=== PATIENT | female | born 1945 | race Caucasian/White ===

== ENCOUNTER 2017-09-14 09:58 | Emergency (ER) | payer MEDICARE ==
[2017-09-14 10:41] LABS: BASOPHILS % (AUTO) 0.5 %; EOSINOPHILS # (AUTO) 0.5 10^3/uL (0.0-0.7); EOSINOPHILS % (AUTO) 9.6 %; LYMPHOCYTES # (AUTO) 1.8 10^3/uL (1.5-3.5); LYMPHOCYTES % (AUTO) 34.9 %; MEAN CORPUSCULAR HEMOGLOBIN 30.9 pg (27.0-31.0); MEAN CORPUSCULAR VOLUME 90.9 fL (81.0-99.0); MONOCYTES # (AUTO) 0.4 10^3/uL (0.0-1.0); MONOCYTES % (AUTO) 7.5 %; NEUTROPHILS # (AUTO) 2.4 10^3/uL (1.5-6.6); NEUTROPHILS % (AUTO) 47.5 %; PLT - PLATELET COUNT 285 10^3/uL (130-450); RED BLOOD COUNT 4.19 10^6/uL (4.20-5.40); RED CELL DISTRIBUTION WIDTH 13.4 % (12.0-15.0); WHITE BLOOD COUNT 5.1 x10^3/uL (4.8-10.8)
[2017-09-14 10:54] LABS: ALBUMIN 4.4 g/dL (3.2-5.5); ALBUMIN/GLOBULIN RATIO 1.3 (1.0-2.2); BILIRUBIN,TOTAL 1.1 mg/dL (0.2-1.0); CALCIUM 9.2 mg/dL (8.5-10.3); CREATININE 0.6 mg/dL (0.4-1.0); TOTAL PROTEIN 7.8 g/dL (6.7-8.2)
[2017-09-14] MEDS ORDERED: ONDANSETRON 4 MG/2 ML VIAL IVP STA (12:20)
[2017-09-14] MEDS ORDERED: SODIUM CHLORIDE 0.9% 1,000 ML IV ONE (12:20)
[2017-09-14] MEDS ORDERED: FAMOTIDINE 20 MG in SODIUM CHLORIDE 0.9% 50 ML IV ONE (12:20)
[2017-09-14] MEDS ORDERED: ACETAMINOPHEN 500 MG TABLET PO STA (12:20)
[2017-09-14 12:24] LABS: BILIRUBIN,URINE NEGATIVE (NEGATIVE); GLUCOSE, URINE (UA) NEGATIVE (NEGATIVE); KETONES,URINE (UA) TRACE mg/dL (NEGATIVE); LEUKOCYTE ESTERASE, URINE NEGATIVE (NEGATIVE); NITRITE,URINE NEGATIVE (NEGATIVE); OCCULT BLOOD,URINE TRACE-INTA (NEGATIVE); PROTEIN,URINE NEGATIVE (NEGATIVE); UROBILINOGEN,URINE 0.2 (NORMAL) E.U./dL (NORMAL)
[2017-09-14 12:25] LABS: CLARITY,URINE CLEAR (CLEAR)
--- NOTE | 2017-09-14 12:59 | ED Physician Documentation ---
PD HPI ABD PAIN - Stated complaint Stated Complaint: ABD PX - Chief complaint Chief Complaint: Abd Pain - History obtained from History obtained from: Patient - Additional information Additional information: 71-year-old female presents the emergency department with intermittent episodes of epigastric discomfort over the past 10 days. The patient reports pain after eating which she describes as a epigastric cramping which improves after several hours. The patient reports ongoing discomfort in her epigastrium without ever complete resolution. The patient reports nausea without vomiting. The patient denies any dysuria, vaginal bleeding, diarrhea or chest pain or dyspnea on exertion. Symptoms are described as moderate. No other associated symptoms. Review of Systems Constitutional: denies: Chills Eyes: denies: Discharge Ears: denies: Ear pain Throat: denies: Sore throat Cardiac: denies: Chest pain / pressure, Palpitations Respiratory: denies: Dyspnea GI: reports: Abdominal Pain, Nausea. denies: Vomiting : denies: Dysuria Skin: denies: Rash Musculoskeletal: denies: Back pain Neurologic: denies: Focal weakness, Syncope Immunocompromised: denies: Chemotherapy PD PAST MEDICAL HISTORY - Past Medical History Past Medical History: No - Past Surgical History Past Surgical History: No - Present Medications Home Medications: Ambulatory Orders Medication Instructions Recorded Confirmed Famotidine [Pepcid] 20 mg PO BID #30 tablet 09/14/17 Ondansetron Odt [Zofran] 4 mg TL Q6H PRN #20 tablet 09/14/17 - Allergies Allergies/Adverse Reactions: Allergies Allergy/AdvReac Type Severity Reaction Status Date / Time No Known Drug Allergies Allergy Verified 09/14/17 10:14 - Social History Does the pt smoke?: No Smoking Status: Never smoker PD ED PE NORMAL - General General: Alert and oriented X 3, No acute distress - HEENT HEENT: Atraumatic, PERRL, EOMI, Ears normal, Moist mucous membranes - Neck Neck: Supple, no meningeal sign - Cardiac Cardiac: RRR, No gallop - Respiratory Respiratory: No respiratory distress, Clear bilaterally - Abdomen Abdomen: Normal bowel sounds, Non distended. No: Non tender (The patient is tender in the epigastrium, there is no rebound or peritoneal signs. The patient has no Sotomayor sign) - Derm Derm: Normal color, No rash - Extremities Extremities: No deformity, No tenderness to palpate, No edema - Neuro Neuro: Alert and oriented X 3, Normal speech - Psych Psych: Normal mood Results - Vitals Vitals: Vital Signs - 24 hr 09/14/17 09/14/17 09/14/17 10:12 11:16 12:11 Temperature 36.2 C L 36.2 C L Heart Rate 81 82 77 Respiratory 20 20 16 Rate Blood Pressure 144/80 H 138/81 H 142/80 H O2 Saturation 98 98 99 09/14/17 15:05 Temperature Heart Rate 57 L Respiratory 16 Rate Blood Pressure 140/78 H O2 Saturation 97 Oxygen O2 Source Room air - Labs Labs: Laboratory Tests 09/14/17 09/14/17 09/14/17 10:20 10:34 10:34 WBC 5.1 RBC 4.19 L Hgb 13.0 Hct 38.1 MCV 90.9 MCH 30.9 MCHC 34.0 RDW 13.4 Plt Count 285 MPV 8.0 Neut # (Auto) 2.4 Lymph # (Auto) 1.8 [place] # (Auto) 0.4 Eos # (Auto) 0.5 Baso # (Auto) 0.0 Absolute Nucleated RBC 0.00 Nucleated RBC % 0.1 Sodium 139 Potassium 3.3 L Chloride 104 Carbon Dioxide 29 Anion Gap 6.0 BUN 16 Creatinine 0.6 Estimated GFR (MDRD) 99 Glucose 103 H Calcium 9.2 Total Bilirubin 1.1 H AST 18 ALT 14 Alkaline Phosphatase 66 Total Protein 7.8 Albumin 4.4 Globulin 3.4 Albumin/Globulin Ratio 1.3 Lipase 30 Urine Color YELLOW Urine Clarity CLEAR Urine pH 6.0 Ur Specific Boyd >=1.030 H Urine Protein NEGATIVE Urine Glucose (UA) NEGATIVE Urine Ketones TRACE Urine Occult Blood TRACE-INTA Urine Nitrite NEGATIVE Urine Bilirubin NEGATIVE Urine Urobilinogen 0.2 (NORMAL) Ur Leukocyte Esterase NEGATIVE Ur Microscopic Review NOT INDICATED Urine Culture Comments NOT INDICATED - Rads (name of study) US RUQ Radiology: Final report received, Other PD MEDICAL DECISION MAKING - ED course ED course: The patient's workup does not reveal an acute etiology would necessitate admission to the hospital, acute surgical consultation or further workup in the emergency department. The patient appears appropriate for discharge home and further workup as an outpatient. I discussed the possibilities of the etiology of her pain. I recommended following up with her primary care doctor in [place] and asking for referral to GI. I discussed warning signs for decompensation and advised returning to the emergency department immediately for worsening or concerns. - Sepsis Event Vital Signs: Vital Signs - 24 hr 09/14/17 09/14/17 09/14/17 10:12 11:16 12:11 Temperature 36.2 C L 36.2 C L Heart Rate 81 82 77 Respiratory 20 20 16 Rate Blood Pressure 144/80 H 138/81 H 142/80 H O2 Saturation 98 98 99 09/14/17 15:05 Temperature Heart Rate 57 L Respiratory 16 Rate Blood Pressure 140/78 H O2 Saturation 97 Oxygen O2 Source Room air Departure - Departure Disposition: Home, Self Care Clinical Impression: Abdominal pain Qualifiers: Abdominal location: epigastric Qualified Code(s): R10.13 - Epigastric pain Condition: Good Instructions: Abdominal Pain Prescriptions: Famotidine [Pepcid] 20 mg PO BID #30 tablet Ondansetron Odt [Zofran] 4 mg TL Q6H PRN #20 tablet PRN Reason: Nausea / Vomiting Comments: Please follow-up with your primary care physician in [place] when you return. Please ask your primary care physician to refer you to gastroenterology for further workup and management of your symptoms today. Please return to the emergency department immediately for worsening symptoms or any concerns
[2017-09-14 15:05] VITALS: BP 140/78
--- NOTE | 2017-09-14 16:29 | Ultrasound Report ---
Procedure Date: 09/14/2017 Accession Number: [id number] / [id number] Procedure: US - Abdomen Limited CPT Code: FULL RESULT: EXAM: ABDOMEN ULTRASOUND LIMITED, RUQ EXAM DATE: 09/14/2017 03:54 PM. CLINICAL HISTORY: Epigastric pain. COMPARISON: None. TECHNIQUE: Real-time scanning was performed with static images obtained. FINDINGS: Liver: Normal in size and echotexture. 16.3 cm. Main portal vein flow: Hepatopetal. Gallbladder: Normal. No stones, wall thickening, or sonographic Sotomayor's sign. Biliary System: Common duct measures 3.7 mm. No intrahepatic or extrahepatic ductal dilatation. Other: Right kidney measures 9.6 cm and there is no hydronephrosis. IMPRESSION: Normal. No cholelithiasis or cholecystitis. [facility]
== END 2017-09-14 17:13 | disposition home or self-care (01) ==
LOC: ED 09:58
DX: R10.13 Epigastric pain (principal)
CPT/HCPCS: 36415; 76705; 80053; 81003; 83690; 85025; 96365; 96375; 99283; A9270; J7040; 81001; 87086